=== PATIENT | female | born 1965 | race African-American/Black ===

== ENCOUNTER 2017-02-24 18:22 | Emergency (ER) | payer BC, MEDICAID ==
[~2017-02-24] VITALS: Ht 165.1 cm; Wt 88.0 kg
[2017-02-25 00:50] VITALS: BP 132/78
== END 2017-02-25 00:50 | disposition home or self-care (01) ==
LOC: ER 18:23
DX: J40 Bronchitis, not specified as acute or chronic (principal); H92.02 Otalgia, left ear
CPT/HCPCS: 71010; 81025; 99283

== ENCOUNTER 2019-06-20 22:30 | Emergency (ER) | payer BC, MEDICAID ==
[~2019-06-20] VITALS: Ht 165.1 cm; Wt 92.0 kg
[2019-06-21] MEDS ORDERED: IBUPROFEN 600MG TABLET PO ONE
[2019-06-21] MEDS ORDERED: CYCLOBENZAPRINE 10MG TABLET PO SCH
[2019-06-21 01:05] VITALS: BP 122/76
== END 2019-06-21 01:05 | disposition home or self-care (01) ==
LOC: ER 22:30
DX: M25.512 Pain in left shoulder (principal); M54.6 Pain in thoracic spine; M54.5 Low back pain; V43.52XA Car driver injured in collision with other type car in traffic accident, initial encounter; Y93.89 Activity, other specified; Y92.410 Unspecified street and highway as the place of occurrence of the external cause
CPT/HCPCS: 72070; 72100; 73030; 99283